=== PATIENT | female | born 1955 | race Hispanic/Latino ===

== ENCOUNTER 2018-02-06 19:15 | Emergency (ER) | payer OTHER ==
[~2018-02-06] VITALS: Ht 157.5 cm; Wt 113.4 kg
[~2018-02-06 19:15] MED LIST: ASPIR 8181 MG PO; BYSTOLIC10 MG PO; LEVOTHYROXINE88 MCG PO
[2018-02-06] MEDS ORDERED: AUGMENTIN 875-1 EACH PO (19:49)
== END 2018-02-06 19:55 | disposition home or self-care (01) ==
LOC: FSED 19:15
DX: L03.115 Cellulitis of right lower limb (principal); I10 Essential (primary) hypertension; E11.9 Type 2 diabetes mellitus without complications; E03.9 Hypothyroidism, unspecified; E66.9 Obesity, unspecified
CPT/HCPCS: 82948; 99283